=== PATIENT | male | born 1955 | race Caucasian/White ===

== ENCOUNTER 2017-04-25 16:00 | Emergency (ER) | payer BC ==
[~2017-04-25] VITALS: Ht 177.8 cm; Wt 94.9 kg
[2017-04-25 16:10] VITALS: BP 130/86; PULSE 74; RESP 16; TEMP 97.9; O2SAT 99
[2017-04-25] MEDS ORDERED: SODIUM CHLORIDE 0.9% FLUSH 10 ML FLUSH IV FLUSH PRN (17:30)
[2017-04-25] MEDS ORDERED: OMEP40CA2 PO (17:35)
[2017-04-25 17:39] VITALS: RESP 16; O2SAT 99
[2017-04-25 17:45] VITALS: BP 143/95; PULSE 68; RESP 16; O2SAT 99
--- NOTE | 2017-04-25 17:46 | PD ---
HPI Chief Complaint: Abdominal Pain Time Seen by Provider: 17:13 Travel History International Travel<30 days: No Contact w/Intl Traveler<30days: No Traveled to known affect area: No History of Present Illness HPI 61-year-old male here for evaluation of right upper quadrant abdominal pain. The patient first noticed the pain yesterday evening about an hour after eating soup. Pain at that time was severe, sharp, nonradiating. Currently the pain is 2 out of 10, worse with palpitations and slightly worse with movements. He feels nauseous but has not vomited. No fevers. He has had somewhat of a decreased appetite. History of GERD for which she takes Prilosec as well as non -Hodgkin's lymphoma that has been in remission for 10 years. History of appendectomy. He denies chest pain or dyspnea. He noticed that his urine was somewhat cloudy. No hematuria or dysuria. PFSH Past Medical History Cancer: Yes (NON-HODGEKINS LYMPHOMA) Chemotherapy: Yes Diminished Hearing: No GERD: Yes Musculoskeletal: Yes (STABLE L3-L4 COMPRESSION FX) Immunizations Current: Yes Radiation Therapy: Yes Past Surgical History Appendectomy: Yes Joint Replacement: Yes (RIGHT KNEE REPLACEMENT) Oral Surgery: Yes (MULTIPLE UPPER JAW FRACTURES-) Other Surgery: Yes (LYMPH NODE REMOVED RIGHT NECK.) Social History Alcohol Use: Yes (OCC) Tobacco Use: No (FORMER) Substance Use: No Allergies-Medications (Allergen,Severity, Reaction): Coded Allergies: No Known Allergies (Unverified , 04/25/17) Reported Meds & Prescriptions Reported Meds & Active Scripts Active Reported Omeprazole 40 Mg Cap 40 Mg PO BID Review of Systems Except as stated in HPI: all other systems reviewed are Neg Physical Exam Narrative GENERAL: Well-developed, well-nourished, comfortable, no apparent distress. SKIN: Focused skin assessment warm/dry. No rash. HEAD: Atraumatic. Normocephalic. EYES: Pupils equal and round. No scleral icterus. No injection or drainage. ENT: Mucous membranes pink and moist. NECK: Trachea midline. No JVD. CARDIOVASCULAR: Regular rate and rhythm. No murmur appreciated. RESPIRATORY: No accessory muscle use. Clear to auscultation. Breath sounds equal bilaterally. GASTROINTESTINAL: Abdomen soft, nondistended. Mild right upper quadrant tenderness without peritoneal signs. Normal bowel sounds. No hernias. MUSCULOSKELETAL: No obvious deformities. No clubbing. No cyanosis. No edema. NEUROLOGICAL: Awake and alert. No obvious cranial nerve deficits. Motor grossly within normal limits. Normal speech. PSYCHIATRIC: Appropriate mood and affect; insight and judgment normal. Data Data Last Documented VS Vital Signs Date Time Temp Pulse Resp B/P (MAP) Pulse Ox O2 Delivery O2 Flow Rate FiO2 04/25/17 17:45 68 16 143/95 (111) 99 Room Air 04/25/17 16:10 97.9 Orders Orders Complete Blood Count With Diff (04/25/17 17:18) Comprehensive Metabolic Panel (04/25/17 17:18) Lipase (04/25/17 17:18) Prothrombin Time / Inr (Pt) (04/25/17 17:18) Act Partial Throm Time (Ptt) (04/25/17 17:18) Iv Access Insert/Monitor (04/25/17 17:18) Ecg Monitoring (04/25/17 17:18) Oximetry (04/25/17 17:18) Sodium Chloride 0.9% Flush (Ns Flush) (04/25/17 17:30) Electrocardiogram (04/25/17 17:18) Urinalysis - C+S If Indicated (04/25/17 17:28) Us Abdomen Gallbladder (04/25/17 ) Labs Laboratory Tests Test 04/25/17 17:45 White Blood Count 6.2 TH/MM3 Red Blood Count 5.29 MIL/MM3 Hemoglobin 14.6 GM/DL Hematocrit 44.6 % Mean Corpuscular Volume 84.2 FL Mean Corpuscular Hemoglobin 27.6 PG Mean Corpuscular Hemoglobin Concent 32.8 % Red Cell Distribution Width 12.9 % Platelet Count 194 TH/MM3 Mean Platelet Volume 7.4 FL Neutrophils (%) (Auto) 72.2 % Lymphocytes (%) (Auto) 14.9 % Monocytes (%) (Auto) 9.4 % Eosinophils (%) (Auto) 3.1 % Basophils (%) (Auto) 0.4 % Neutrophils # (Auto) 4.5 TH/MM3 Lymphocytes # (Auto) 0.9 TH/MM3 Monocytes # (Auto) 0.6 TH/MM3 Eosinophils # (Auto) 0.2 TH/MM3 Basophils # (Auto) 0.0 TH/MM3 CBC Comment DIFF FINAL Differential Comment Prothrombin Time 10.7 SEC Prothromb Time International Ratio 1.1 RATIO Activated Partial Thromboplast Time 25.9 SEC Urine Color YELLOW Urine Turbidity CLEAR Urine pH 6.0 Urine Specific [place] 1.005 Urine Protein NEG mg/dL Urine Glucose (UA) NEG mg/dL Urine Ketones NEG mg/dL Urine Occult Blood NEG Urine Nitrite NEG Urine Bilirubin NEG Urine Leukocyte Esterase NEG Urine Squamous Epithelial Cells 0-5 /hpf Microscopic Urinalysis Comment CULT NOT INDICATED Blood Urea Nitrogen 12 MG/DL Creatinine 1.00 MG/DL Random Glucose 95 MG/DL Total Protein 7.5 GM/DL Albumin 3.7 GM/DL Calcium Level 8.8 MG/DL Alkaline Phosphatase 64 U/L Aspartate Amino Transf (AST/SGOT) 20 U/L Alanine Aminotransferase (ALT/SGPT) 24 U/L Total Bilirubin 0.6 MG/DL Sodium Level 139 MEQ/L Potassium Level 3.9 MEQ/L Chloride Level 103 MEQ/L Carbon Dioxide Level 31.4 MEQ/L Anion Gap 5 MEQ/L Estimat Glomerular Filtration Rate 76 ML/MIN Lipase 120 U/L MDM Medical Decision Making Medical Screen Exam Complete: Yes Emergency Medical Condition: Yes Interpretation(s) EKG: Sinus, rate 61, normal axis, normal intervals, no acute ischemic abnormality. Differential Diagnosis Cholecystitis, cholelithiasis, biliary colic, cholangitis, choledocholithiasis, pancreatitis, peptic ulcer disease, nephrolithiasis, pyelonephritis, colitis, hepatitis Narrative Course Initial vital signs show heart rate 74, blood pressure 130/86, pulse ox 99% on room air, oral temp of 97.9F. CBC is unremarkable. CMP is unremarkable. UA is completely normal without signs of UTI. Right upper quadrant ultrasound: CONCLUSION: The liver is slightly echogenic which maybe due to fatty infiltration and or hepatocellular dysfunction, and sludge in the gallbladder. The patient and the patient's significant other were made aware of all findings. He is resting comfortably and states he feels improved. He is likely experiencing biliary colic. There are no peritoneal signs and his abdominal exam. This point he is stable for discharge home with further outpatient follow-up with his primary care physician as well as physicians at the [facility]. 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 He was advised on when to return to the emergency department. He verbalizes understanding and agreement with plan. Diagnosis Primary Impression: Biliary colic Additional Impression: Gallbladder sludge Referrals: Primary Care Physician 3 days Additional Instructions: Follow-up with your primary care physician this week. Return to the emergency department for worsening symptoms or any other concerns. Scripts Hydrocodone-Acetaminophen (Hydrocodone-Acetaminophen) 5-325 mg Tab 1 TAB PO Q6H Y for PAIN, #10 TAB 0 Refills Prov: Roland Gallardo MD 04/25/17 Disposition: 01 DISCHARGE HOME Condition: Stable Roland Gallardo MD Apr 25, 2017 17:46
[2017-04-25 18:04] LABS: BILIRUBIN, URINE NEG (NEG); BLOOD, URINE NEG (NEG); GLUCOSE,URINE NEG (NEG); KETONE, URINE NEG (NEG); NITRITE,URINE NEG (NEG); URINE LEUKOCYTE ESTERASE NEG (NEG)
[2017-04-25 18:05] LABS: AUTOMATED NEUTROPHIL # 4.5 TH/MM3 (1.8-7.7); BASOPHIL % 0.4 % (0.0-2.0); EOSINOPHIL # 0.2 TH/MM3 (0-0.4); EOSINOPHIL % 3.1 % (0.0-4.0); HEMATOCRIT 44.6 % (39.0-51.0); HEMOGLOBIN 14.6 GM/DL (13.0-17.0); LYMPH % 14.9 % (9.0-44.0); LYMPHOCYTE # 0.9 TH/MM3 (1.0-4.8); MEAN CELL VOLUME 84.2 FL (80.0-100.0); MEAN CORPUSCULAR HEMOGLOBIN 27.6 PG (27.0-34.0); MEAN CORPUSCULAR HGB CONC 32.8 % (32.0-36.0); MEAN PLATELET VOLUME 7.4 FL (7.0-11.0); MONO % 9.4 % (0.0-8.0); MONOCYTE # 0.6 TH/MM3 (0-0.9); NEUT % 72.2 % (16.0-70.0); PLATELET COUNT 194 TH/MM3 (150-450); RED BLOOD COUNT 5.29 MIL/MM3 (4.50-5.90); RED CELL DISTRIBUTION WIDTH 12.9 % (11.6-17.2); WHITE BLOOD COUNT 6.2 TH/MM3 (4.0-11.0)
[2017-04-25 18:08] LABS: SQUAMOUS EPITHELIAL CELL URINE 0-5 /hpf (0-5); URINE COLOR YELLOW (YELLW/STRAW)
[2017-04-25 18:13] LABS: CHLORIDE 103 MEQ/L (98-107); SODIUM (NA) 139 MEQ/L (136-145)
[2017-04-25 18:17] LABS: ALBUMIN 3.7 GM/DL (3.4-5.0); BICARBONATE 31.4 MEQ/L (21.0-32.0); BLOOD UREA NITROGEN 12 MG/DL (7-18); CALCIUM 8.8 MG/DL (8.5-10.1); GLUCOSE,RANDOM 95 MG/DL (74-106)
[2017-04-25 18:19] LABS: INTERNATIONAL NORMALIZED RATIO 1.1 RATIO; PROTHROMBIN TIME - PATIENT 10.7 SEC (9.8-11.6)
[2017-04-25 18:20] LABS: ALT (GPT) 24 U/L (12-78); AST (GOT) 20 U/L (15-37); GLOMERULAR FILTRATION RATE 76 ML/MIN (>89)
[2017-04-25 18:22] LABS: TOTAL BILIRUBIN ADULT 0.6 MG/DL (0.2-1.0); TOTAL PROTEIN 7.5 GM/DL (6.4-8.2)
[2017-04-25 18:23] LABS: ALKALINE PHOSPHATASE 64 U/L (45-117)
--- NOTE | 2017-04-25 19:06 | RADRPT ---
EXAM DATE/TIME: 04/25/2017 18:04 [facility] COMPARISON: No previous studies available for comparison. INDICATIONS : Right upper quadrant pain. MEDICAL HISTORY : Gastroesophageal reflux disease. Right upper quadrant pain. Non hodgkins ly phoma. SURGICAL HISTORY : Appendectomy. Right knee replacement. Lymph node removed, right neck. ENCOUNTER: Initial ACUITY: 2 days PAIN SCORE: 4/10 LOCATION: Right upper quadrant MEASUREMENTS: LIVER: 15.3 cm length COMMON DUCT: 4 mm RIGHT KIDNEY: 10.4 x 5.0 x 5.7 cm FINDINGS: The liver is slightly echogenic which maybe due to fatty infiltration and or hepatocellular dysfuncti on. The gallbladder is intact without any evidence for gallstones, however there is sludge in the gal lbladder without gallbladder wall thickening, or pericholecystic fluid. The visualized head of the pancreas, and right kidney appear grossly intact for technique. CONCLUSION: The liver is slightly echogenic which maybe due to fatty infiltration and or hepatoce llular dysfunction, and sludge in the gallbladder. Silvino Solis MD on April 25, 2017 at 19:04 Board Certified Radiologist. This report was verified electronically.
[2017-04-25] MEDS ORDERED: HYDR-3516 PO (19:26)
[2017-04-25 19:48] VITALS: BP 122/80
--- NOTE | 2017-04-26 14:30 | EKG ---
Date Performed: 04/25/2017 Time Performed: 17:57:05 PTAGE: 61 years EKG: Sinus rhythm NORMAL ECG NO PREVIOUS TRACING DOCTOR: Trevor Vidal Interpretating Date/Time 04/26/2017 14:28:16
== END 2017-04-25 19:51 | disposition home or self-care (01) ==
LOC: PHED 16:00
DX: K80.50 Calculus of bile duct without cholangitis or cholecystitis without obstruction (principal); K82.9 Disease of gallbladder, unspecified; Z85.72 Personal history of non-Hodgkin lymphomas
CPT/HCPCS: 76705; 80053; 81001; 83690; 85025; 85610; 85730; 93005; 99285